=== PATIENT | male | born 1965 | race Caucasian/White ===

== ENCOUNTER 2017-09-27 06:30 | Day surgery (SDC) | payer BC ==
[2017-09-26 13:07] VITALS: BMI 30.2
[2017-09-27] MEDS ORDERED: ceFAZolin SODIUM 1 GM VIAL IVPB ONE (08:09)
--- NOTE | 2017-09-27 08:12 | HP ---
[facility] - Chief Complaint Chief Complaint: right shoulder pain History Source: Patient - Past Medical History Allergies/Adverse Reactions: Allergies Allergy/AdvReac Type Severity Reaction Status Date / Time No Known Allergies Allergy Verified 09/26/17 13:03 - Current Medications Current Medications: Home Medications Medication Instructions Recorded NK [No Known Home Medication] 09/26/17 [facility] Physical Exam - Physical Examination Extremities: Other (+ weakness with TDA) [facility] Impression/Plan - Impression/Plan Impression: right RC tear Operative Procedure: arthroscopy right shoulder with RC repair Date to be Performed: 09/27/17
[2017-09-27] MEDS ORDERED: CEFAZOLIN 1 GM/D5W 1 GM/50 ML BAG IVPB ONE (08:45)
[2017-09-27] MEDS ORDERED: ONDANSETRON 4 MG/2 ML VIAL IVPUSH PRN (09:17)
[2017-09-27] MEDS ORDERED: oxyCODONE HCL 5 MG TABLET PO PRN (09:17)
[2017-09-27] MEDS ORDERED: LACTATED RINGERS SOLUTION 1,000 ML/1,000 ML INFUS.BAG IV SCH (09:30)
[2017-09-27] MEDS ORDERED: LACTATED RINGERS SOLUTION 1,000 ML IV SCH (09:30)
--- NOTE | 2017-09-27 09:39 | OP ---
Operative Note - Note: Operative Date: 09/27/17 Pre-Operative Diagnosis: right rotator cuff tear Operation: right rotator cuff repair Post-Operative Diagnosis: Same as Pre-op Surgeon: Devendra Zepeda Boat Rigger: Jamie Novoa Anesthesia: General Estimated Blood Loss (mls): 0 Operative Report Dictated: Yes
--- NOTE | 2017-09-27 10:56 | SPEC ---
DATE OF OPERATION: 09/27/2017 PREOPERATIVE DIAGNOSIS: Right rotator cuff tear. POSTOPERATIVE DIAGNOSIS: Right rotator cuff tear. PROCEDURE: Right rotator cuff repair with SpeedBridge. SURGICAL ATTENDING: Devendra Zepeda MD MANAGER DESKTOP: Jamie Novoa MD ANESTHESIA: Regional and general. CLOSURE: Arthrex SpeedBridge for rotator cuff and 3-0 nylon for skin. ESTIMATED BLOOD LOSS: Negligible. COMPLICATIONS: None. CONDITION: To the recovery room in stable condition. DESCRIPTION OF PROCEDURE: The patient was taken to the operating room on September 27, 2017. General and regional anesthesia was administered by the anesthesiologist. IV Kefzol was administered prophylactically prior to the case. The patient was placed in the beach chair position with all prominences well padded. The right shoulder area was prepped and draped in the usual sterile fashion. First, a diagnostic arthroscopy of the glenohumeral joint was made. Posterior portal was made 2 fingerbreadths below the acromion with a 15 blade followed by a blunt trocar. Circumferential exam of the glenohumeral joint revealed the following: Intact labrum circumferentially, intact glenoid and humeral head articular cartilage, intact biceps and biceps anchor, intact subscapularis through its insertion. Looking superiorly, there was a large rotator cuff tear. The fluid was drained from the shoulder, and the trocar was removed. The posterior trocar was redirected in the subacromial space. An accessory lateral and anterior portal were made with a 15 blade followed by a blunt trocar. The lateral portal was used as the working portal. Through this portal, an ArthroCare device was applied. This was used to debride the soft tissue in the subacromial aspect. The coracoacromial ligament was identified and detached off the anterior acromion and was visualized to drop inferiorly and was further debrided. The bone on the undersurface of the acromion was burred to the appropriate level giving appropriate height for the rotator cuff beneath. Looking inferiorly, there was a large rotator cuff tear, soft tissue encasing the rotator cuff, and the deltoid recess was debrided using ArthroCare device and the shaver. The bed on the greater tuberosity was burred to give a good bed for the double row SpeedBridge repair. A grasper was used to ensure that the rotator cuff was able to be reduced sufficiently to the greater tuberosity. The rotator cuff was freed on the bursal and the articular surface to allow more excursion of the tendon. Two anchors preloaded with FiberTape suture were placed on the articular margin, one more anteriorly, one more posteriorly. They were shuttled through the anterior portal with a grasper. Each limb was individually passed through the rotator cuff, two anteriorly and two posteriorly. One anterior limb and one posterior limb was delivered through the lateral portal. They were placed through the eyelet hole of the more lateral anchor, which was then malleted into place much more laterally, reducing the rotator cuff to the greater tuberosity. The swivel was then screwed into place. The sutures were then cut flush with the bone. Next, one anterior and one posterior limb that was remaining were shuttled from the anterior to the lateral portal. The sutures were placed through the eyelet hole of the anterior anchor, which was malleted on the anterior aspect of the greater tuberosity. After tensioning it, it was deployed the entire way and then screwed home giving an excellent reduction to the anterior portion of the rotator cuff. After the sutures were cut, the rotator cuff was probed and found to have good stability with excellent matting down of the rotator cuff to the greater tuberosity. The shoulder was taken through the range of motion and found to have good clearance on the undersurface of the acromion with good, solid repair. The shoulder was drained of the fluid. The portals were closed with 3-0 nylon suture. A sterile pressure dressing followed by a shoulder immobilizer was applied. The patient was awoken from anesthesia and transferred to recovery room in stable condition. No complications. Estimated blood loss negligible. Bobby WAKEFIELD/[id number]
[2017-09-27 11:18] VITALS: TEMP 97.7
[2017-09-27] MEDS ORDERED: ceFAZolin SODIUM 1 GM VIAL ONE (12:20)
[2017-09-27 13:40] VITALS: BP 112/68; PULSE 90
--- NOTE | 2017-09-28 13:45 | PATH ---
Surgical Pathology Report Patient Name: PANTERA DELGADO [facility]. Rec. #: [id number] /Age/Gender: 1965 (Age: 52) / M Account: [id number] Location: [facility] SURGICAL Taken: 09/27/2017 Received: 09/27/2017 Reported: 09/28/2017 Physicians: Devendra Zepeda M.D. Specimen(s) Received RIGHT SHOULDER SHAVINGS Clinical History Right rotator cuff Final Diagnosis SHOULDER SHAVINGS, RIGHT, ARTHROSCOPY: SYNOVIUM, FIBROCARTILAGINOUS AND FIBROADIPOSE TISSUE. Electronically Signed Evie Bond M.D. Gross Description Received in formalin, labeled "right shoulder shavings," is a 4.3 x 4.0 x 0.4 cm. aggregate of tillman-yellow soft tissue fragments. A civil rights representative portion is submitted in one cassette. /09/27/201709/27/2017
== END 2017-09-27 13:40 | disposition home or self-care (01) ==
LOC: JASU-SURG 06:30
PROVIDERS: ATTEND Orthopaedic Surgery
PROC: 0LB14ZZ Excision of Right Shoulder Tendon, Percutaneous Endoscopic Approach (ICD-10-PCS; principal; 2017-09-27 08:00)
DX: M75.101 Unspecified rotator cuff tear or rupture of right shoulder, not specified as traumatic (principal)
CPT/HCPCS: 88304-TC; 94760